=== PATIENT | female | born 1935 | race Caucasian/White ===

== ENCOUNTER 2020-11-13 11:32 | Outpatient (CLI) | payer MEDICARE | END 2020-11-13 23:59 | disposition home or self-care (01) | LOC: CFH 11:32 | PROVIDERS: ATTEND Nurse Practitioner Primary Care | DX: R92.1 Mammographic calcification found on diagnostic imaging of breast (principal); N63.21 Unspecified lump in the left breast, upper outer quadrant; R23.4 Changes in skin texture | CPT/HCPCS: 76642; 77062; 77066; G0279 ==